=== PATIENT | female | born 1985 | race Two or more races ===

== ENCOUNTER 2018-10-16 10:45 | Emergency (ER) | payer OTHER ==
[~2018-10-16] VITALS: Ht 160 cm; Wt 50.8 kg
== END 2018-10-16 13:14 | disposition home or self-care (01) ==
LOC: ER 10:45
DX: B34.9 Viral infection, unspecified (principal); K29.60 Other gastritis without bleeding

== ENCOUNTER 2020-12-15 13:45 | Inpatient (IN) | payer OTHER ==
[~2020-12-15] VITALS: Ht 160 cm; Wt 78.0 kg
[2020-12-30] MEDS ORDERED: PRENATAL CAPLE1 EAC1 PO (13:07)
== END 2021-01-01 13:34 | disposition home or self-care (01) | DRG 788 ==
LOC: SURG-SUITE 12-30 12:11 → LDR 12-30 12:11 → SURG-SUITE 12-30 17:02 → OB/GYN 01-01 13:45
PROVIDERS: ADMIT Obstetrics & Gynecology; ATTEND Obstetrics & Gynecology
PROC: 4A1HXFZ Monitoring of Products of Conception, Cardiac Rhythm, External Approach (ICD-10-PCS; 2020-12-30)
PROC: 10D00Z1 Extraction of Products of Conception, Low, Open Approach (ICD-10-PCS; principal; 2020-12-30 12:00)
DX: O66.2 Obstructed labor due to unusually large fetus (principal); O62.2 Other uterine inertia; O65.8 Obstructed labor due to other maternal pelvic abnormalities; Z3A.39 39 weeks gestation of pregnancy; Z37.0 Single live birth; Z20.822 Contact with and (suspected) exposure to COVID-19

== ENCOUNTER 2020-12-25 11:49 | Outpatient (CLI) | payer OTHER | END 2020-12-25 12:57 | disposition home or self-care (01) | LOC: NST 11:49 | PROVIDERS: ATTEND Obstetrics & Gynecology | DX: Z34.83 Encounter for supervision of other normal pregnancy, third trimester (principal) ==

== ENCOUNTER 2023-10-04 07:38 | Day surgery (SDC) | payer OTHER ==
[2023-10-03 16:32] LABS: HEMATOCRIT 33.2 % (36.0-45.00); MEAN CELL VOLUME 89.8 fL (80.00-100.00); MEAN CORPUSCULAR HEMOGLOBIN 32.6 pg (27.00-32.0); MEAN CORPUSCULAR HGB CONC 36.3 g/dl (32.0-36.0); PLATELET COUNT 307 K/uL (150-450); RED CELL DISTRIBUTION WIDTH 13.4 % (11.5-14.5)
[2023-10-03 16:50] LABS: INR 0.96; PARTIAL THROMBOPLASTIN TIME 23.9 SECONDS (22.0-34.0); PROTHROMBIN TIME 10.1 SECONDS (9.0-11.5)
[2023-10-03 16:56] LABS: ALBUMIN 4.1 gm/dL (3.4-5.0); BILIRUBIN TOTAL 0.29 mg/dL (0.3-1.2); CREATININE SERUM 0.57 mg/dL (0.55-1.02); GFR 119.35; GLOBULINA 3.2 G/DL (2.4-3.5); POTASSIUM 3.68 mEq/L (3.5-5.1); TOTAL PROTEIN 7.3 gm/dL (6.4-8.2)
[~2023-10-04 07:38] MED LIST: PRENATAL CAPLE1 EAC1 PO
== END 2023-10-04 15:00 | disposition home or self-care (01) ==
LOC: CIR.AMB 07:38
PROVIDERS: ATTEND Obstetrics & Gynecology
DX: O02.1 Missed abortion (principal); O72.2 Delayed and secondary postpartum hemorrhage; Z20.822 Contact with and (suspected) exposure to COVID-19

== ENCOUNTER 2024-11-21 11:29 | Inpatient (IN) | payer OTHER ==
[~2024-11-21] VITALS: Ht 160 cm; Wt 78.9 kg
[2024-12-06] MEDS ORDERED: IRON325 MG PO (11:19)
[2024-12-06 11:20] VITALS: BP 120/74
[2024-12-06] MEDS ORDERED: ERYTHROMYCIN BASE OPHT 1GM EACH TUBE OP ONE (12:37)
[2024-12-06] MEDS ORDERED: OXYTOCIN 10 UNITS/ML VIAL ONE ×2 (12:37→15:57)
[2024-12-06] MEDS ORDERED: CEFAZOLIN SODIUM 1,000 MG VIAL ONE (12:38)
[2024-12-06] MEDS ORDERED: TRIAMCINOLONE ACETONIDE 40 MG/ML VIAL ONE (13:16)
[2024-12-06] MEDS ORDERED: METHYLERGONOVINE MALEATE 0.2 MG/ML AMPUL ONE (13:44)
[2024-12-06] MEDS ORDERED: OXYTOCIN 1,000 ML IV SCH (14:30)
[2024-12-06] MEDS ORDERED: IBUprofen 400 MG TABLET PO PRN (14:30)
[2024-12-06] MEDS ORDERED: MORPHINE SULFATE 4 MG/ML VIAL IV ONE (14:50)
[2024-12-06 17:00] VITALS: BP 132/79
[2024-12-06] MEDS ORDERED: MORPHINE SULFATE 4 MG/ML CARTRIDGE IV SCH (18:00)
[2024-12-07 00:16] VITALS: BP 106/67
[2024-12-07 04:30] VITALS: BP 106/67
[2024-12-07 08:00] VITALS: BP 109/68
[2024-12-07 16:00] VITALS: BP 106/68
[2024-12-07 19:34] LABS: HEMATOCRIT 31.4 % (36.0-45.00); HEMOGLOBIN 11.2 g/dL (12.0-15.00); MEAN CELL VOLUME 91.7 fL (80.00-100.00); MEAN CORPUSCULAR HEMOGLOBIN 32.7 pg (27.00-32.0); MEAN CORPUSCULAR HGB CONC 35.6 g/dl (32.0-36.0); PLATELET COUNT 201 K/uL (150-450); RED BLOOD COUNT 3.42 M/uL (4.00-6.00); RED CELL DISTRIBUTION WIDTH 13.8 % (11.5-14.5)
[2024-12-08 00:33] VITALS: BP 114/71
[2024-12-08] MEDS ORDERED: OxyCODONE HCL 5 MG TABLET (ROXICODONE) PO PRN (06:00)
[2024-12-08 08:00] VITALS: BP 109/71
[2024-12-08] MEDS ORDERED: IBUprofen 400 MG TABLET PO SCH (09:00)
[2024-12-08] MEDS ORDERED: SIMETHICONE 125 MG CAPSULE PO NR (12:30)
[2024-12-08 14:59] VITALS: BP 101/57
[2024-12-08] MEDS ORDERED: SIMETHICONE 125 MG CAPSULE PO SCH (17:00)
[2024-12-09 00:55] VITALS: BP 110/69
[2024-12-09 07:47] VITALS: BP 111/67
== END 2024-12-09 11:45 | disposition home or self-care (01) | DRG 833 ==
LOC: SURG 12-06 07:00 → O/R 12-06 11:44 → OB/GYN 12-06 11:44 → SURG 12-12 11:17
PROVIDERS: ADMIT Obstetrics & Gynecology; ATTEND Obstetrics & Gynecology
DX: O34.211 Maternal care for low transverse scar from previous cesarean delivery (principal); O36.63X0 Maternal care for excessive fetal growth, third trimester, not applicable or unspecified; Z3A.39 39 weeks gestation of pregnancy; Z37.0 Single live birth